=== PATIENT | male | born 1950 | race Native Hawaiian/Other Pacific Islander ===

== ENCOUNTER 2018-03-23 10:48 | Outpatient (CLI) | payer OTHER | END 2018-03-23 10:50 | disposition short-term general hospital (02) | LOC: AMB 10:48 | DX: I48.91 Unspecified atrial fibrillation (principal); R06.02 Shortness of breath; J44.9 Chronic obstructive pulmonary disease, unspecified | CPT/HCPCS: A0425; A0427 ==

== ENCOUNTER 2018-03-23 10:50 | Emergency (ER) | payer OTHER ==
[~2018-03-23] VITALS: Ht 172.7 cm; Wt 75.3 kg
[2018-03-23 10:50] VITALS: TEMP 97.9
[2018-03-23 11:59] LABS: PLATELET COUNT 360 K/uL (142-355)
[2018-03-23 12:06] LABS: POTASSIUM 3.3 mmol/L (3.6-5.2); SODIUM 140 mmol/L (136-145)
[2018-03-23 13:22] VITALS: BP 142/78
== END 2018-03-23 13:23 | disposition home or self-care (01) ==
LOC: ED 10:50
DX: R00.2 Palpitations (principal)
CPT/HCPCS: 36415; 80053; 81000; 82550; 82553; 84484; 85027; 93005; 96374; 99284; J3490

== ENCOUNTER 2018-09-20 09:33 | Outpatient (CLI) | payer OTHER | END 2018-09-20 22:22 | disposition home or self-care (01) | LOC: RAD 09:33 | DX: M54.5 Low back pain (principal); M54.2 Cervicalgia ==

== ENCOUNTER 2019-07-26 16:19 | Outpatient (CLI) | payer OTHER | END 2019-07-26 16:22 | disposition short-term general hospital (02) | LOC: AMB 16:19 | DX: I46.9 Cardiac arrest, cause unspecified (principal) | CPT/HCPCS: A0425; A0433 ==

== ENCOUNTER 2019-07-26 16:24 | Emergency (ER) | payer OTHER ==
[~2019-07-26] VITALS: Ht 172.7 cm; Wt 75.3 kg
[2019-07-26 16:24] VITALS: TEMP 97.9
[2019-07-26 16:39] LABS: PLATELET COUNT 204 K/uL (142-355)
[2019-07-26 16:42] LABS: PARTIAL THROMBOPLASTIN TIME 26.1 SECONDS (24.5-33.6)
[2019-07-26 17:04] LABS: POTASSIUM 7.8 mmol/L (3.6-5.2)
== END 2019-07-26 17:19 | disposition expired ==
LOC: ED 16:24
PROVIDERS: Family Medicine
PROC: 5A12012 Performance of Cardiac Output, Single, Manual (ICD-10-PCS; principal; 2019-07-26)
DX: I46.9 Cardiac arrest, cause unspecified (principal)
CPT/HCPCS: 80053; 82550; 83880; 84484; 85027; 85610; 85730; 92950; 96374; 99285; 99291; J0171